=== PATIENT | male | born 1945 | race Caucasian/White ===

== ENCOUNTER 2017-08-04 06:30 | Day surgery (SDC) | payer MEDICARE ==
[2017-08-03 12:12] VITALS: BMI 25.4
[2017-08-04] MEDS ORDERED: Lactated Ringer's 500 ML IV SCH (10:15)
[2017-08-04] MEDS ORDERED: Propofol 10 mg/ml Inj (20 ML) ONE (10:22)
--- NOTE | 2017-08-04 10:24 | CP.SDSHP ---
Same Day Surgery H & P - History Proposed Procedure: Colonoscopy Pre-Op Diagnosis: polyp surveillance - Previous Medical/Surgical History Endocrine/Metabolic: Diabetes Comments: BPH. Blindness. Cholesterol. Retinitis Pigmentosa Previous Surgical History: TURP - Allergies Allergies: Allergies No Known Allergies Allergy (Verified 08/04/17 07:42) - Current Medications Current Medications: reviewed,per reconciliation - Physical Exam General Appearance: wdwn nad Vital Signs: Vital Signs 08/04/17 08/04/17 07:44 10:19 Temperature 98.9 F 98.9 F Pulse Rate 80 80 Respiratory 20 20 Rate Blood Pressure 173/97 H 173/97 H O2 Sat by Pulse 98 98 Oximetry Mental Status: Alert & Oriented x3 Heart: WNL Lungs: WNL - {Optional Preform as Required} Abdomen: WNL - Impression Impression: History of colon polyps Pt. Evaluated Today:Candidate for Anesthesia & Procedure: Yes - Date & Time Date: 08/04/17 Time: 10:24 Short Stay Discharge - Short Stay Discharge Admitting Diagnosis/Reason for Visit: COLONIC POLYPS Disposition: HOME/ ROUTINE
[2017-08-04 11:03] VITALS: TEMP 98.7
[2017-08-04 12:55] VITALS: BP 143/85; PULSE 76; RESP 11; O2SAT 98
== END 2017-08-04 12:00 | disposition home or self-care (01) ==
LOC: C.ENDO 06:30
PROVIDERS: ATTEND Internal Medicine Gastroenterology
DX: Z12.11 Encounter for screening for malignant neoplasm of colon (principal); K57.30 Diverticulosis of large intestine without perforation or abscess without bleeding; K64.0 First degree hemorrhoids; Z86.010 Personal history of colon polyps; E11.9 Type 2 diabetes mellitus without complications; E78.5 Hyperlipidemia, unspecified; N40.0 Benign prostatic hyperplasia without lower urinary tract symptoms
CPT/HCPCS: 45378; 82948; J2704; J3010; J7120